=== PATIENT | female | born 1950 | race Caucasian/White ===

== ENCOUNTER 2019-05-08 09:26 | Outpatient (CLI) | payer OTHER | END 2019-05-08 09:31 | disposition home or self-care (01) | LOC: TOM 09:26 | DX: K56.50 Intestinal adhesions [bands], unspecified as to partial versus complete obstruction (principal); K56.609 Unspecified intestinal obstruction, unspecified as to partial versus complete obstruction; K56.690 Other partial intestinal obstruction ==